=== PATIENT | female | born 2000 | race Caucasian/White ===

== ENCOUNTER 2020-04-26 14:43 | Emergency (ER) | payer BC ==
[~2020-04-26] VITALS: Ht 167.6 cm; Wt 61.2 kg
--- NOTE | 2020-04-26 15:08 | NUR ---
Pt. had spider bite, unwitnessed, on right FA Sunday, Pt vomited x 1 that night. Blotchy rash began to develop and has spread to full right arm, ABD, lower back, and left arm -- includes itching and burning sensation as well. Pt denies CP, SOB, dizziness but has some slight nausea, no distress noted.
[2020-04-26] MEDS ORDERED: DEXAMETHASONE SOD PHOSPHATE 4 MG INJ IM ONE (15:30)
[2020-04-26] MEDS ORDERED: diphenhydrAMINE 50 MG CAPSULE PO ONE (15:30)
[2020-04-26] MEDS ORDERED: DEXAMETHASONE SOD PHOSPHATE 4 MG INJ ONE (15:32)
[2020-04-26] MEDS ORDERED: diphenhydrAMINE 50 MG CAPSULE ONE (15:33)
--- NOTE | 2020-04-26 15:37 | NUR ---
Pt stated she had about [address] to get home so gave pt Benadryl cap to take when she gets there so as to avoid drowsiness while driving.
--- NOTE | 2020-04-26 15:40 | NUR ---
Gave pt d/c instructions, pt verbalized understanding.
== END 2020-04-26 16:19 | disposition home or self-care (01) ==
LOC: ER 14:43
DX: L30.9 Dermatitis, unspecified (principal)
CPT/HCPCS: 96372; 99283; J1100; Q0163; A4663